=== PATIENT | female | born 1940 | race African-American/Black ===

== ENCOUNTER 2018-12-17 09:06 | Day surgery (SDC) | payer OTHER ==
[2018-12-16 10:00] VITALS: BMI 25.7
[2018-12-17] MEDS ORDERED: MIDAZOLAM HCL 2 MG/2 ML SINGLE DOSE VIAL ONE ×2 (11:02→11:25)
[2018-12-17] MEDS ORDERED: ceFAZolin SODIUM 1 GM VIAL IVPB ONE (11:13)
[2018-12-17] MEDS ORDERED: ceFAZolin SODIUM 1 GM VIAL ONE (11:13)
[2018-12-17] MEDS ORDERED: DEXAMETHASONE SOD PHOSPHATE 4 MG/1 ML VIAL ONE (11:17)
--- NOTE | 2018-12-17 11:17 | OP ---
Operative Note - Note: Operative Date: 12/17/18 Pre-Operative Diagnosis: Right Renal calculus Operation: right ESWL Findings: 8 mm right lp stone Post-Operative Diagnosis: Same as Pre-op Surgeon: Bay Subramanian MD. Anesthesia: MAC Operative Report Dictated: Yes
[2018-12-17] MEDS ORDERED: ELECTROLYTE-148 SOLN 1,000 ML IV SCH (11:30)
[2018-12-17] MEDS ORDERED: KETOROLAC TROMETHAMINE 30 MG/1 ML VIAL ONE (11:35)
--- NOTE | 2018-12-17 13:00 | OP ---
DATE OF OPERATION: 12/17/2018 PREOPERATIVE DIAGNOSIS: Right renal calculus. POSTOPERATIVE DIAGNOSIS: Right renal calculus. PROCEDURE: Right lithotripsy. HISTORY: This is a 80-year-old female with a history of occasional flank pain, who also had microhematuria preoperatively. Preoperative imaging revealed an 8-mm right lower pole calculus. After discussing treatment options including observation, the patient elects to undergo the above-stated procedure. Risks and benefits of treatment and alternative treatments discussed in detail. All questions were answered. BRIEF OPERATIVE NOTE: The patient was brought to the operative room, placed in the supine position. Once the stone was localized in 3-dimensional axes, the patient was given sedation. Approximately 2500 shocks were delivered in electromagnetic fashion. The patient tolerated the procedure well and was brought to recovery room in stable and satisfactory condition. GASTON HUGHES M.D. [id number]
[2018-12-17 15:40] VITALS: BP 118/58; PULSE 71; TEMP 98.1
== END 2018-12-17 14:40 | disposition home or self-care (01) ==
LOC: JASU-SURG 09:06
PROVIDERS: ATTEND Urology
PROC: 0TF3XZZ Fragmentation in Right Kidney Pelvis, External Approach (ICD-10-PCS; principal; 2018-12-17 09:45)
DX: N20.0 Calculus of kidney (principal)
CPT/HCPCS: 82962